=== PATIENT | female | born 1985 | race Caucasian/White ===

== ENCOUNTER 2025-01-24 08:52 | Outpatient (AMB) | payer OTHER, SELFPAY ==
--- NOTE | 2025-01-24 08:53 | MHC.OFFVIS ---
Intake Visit Reasons: 6m Migraine Allergies No Known Allergies Allergy (Verified 01/24/25 08:53) Medication List - Last Reconciled 01/24/25 by Kelly Nixon CNP bupropion HCl XL 300 mg PO DAILY eletriptan 40 mg PO DAILY PRN 30 days nortriptyline 10 - 20 mg PO BEDTIME ondansetron HCl 4 mg PO Q8H PRN valacyclovir 500 mg PO DAILY HPI Comments Details: She was doing okay. Migraines are about the same, usually around period. May get clusters of headaches with period, stress, or lack of sleep. Other triggers include artificial sweeteners in diet sodas and caffeine late in the day. Taking Relpax as needed with good relief, insurance covers #12 for 22 days. Has some work related stress, working at [employer]. Sleep was not so good. She recently restarted nortriptyline, no medication side effects. Hx of migraine with aura, right head tingling. No problems with headaches in first . Has been having headaches since age 4. Duration: a day. Location: above either eye. Quality: Steady to stabbing. Associated features: photophobia, phonophobia, and nausea with bad one. Severity: 8-9/10. Triggers: hormones, stress. MATTHEWS improved by sleep. She has tried ibuprufen, and aleve. Relpax was awesome, it helped right away and MATTHEWS disappeared completely. [facility] Medical History (Updated 01/24/25 @ 08:56 by Kelly Nixon CNP) Insomnia Migraine Review of Systems Const Denies chills, Denies daytime sleepiness, Denies difficulty sleeping, Denies fatigue, Denies fever(s), Denies frequent falls, Reports headache(s), Denies increased appetite, Denies poor appetite, Denies snoring, Denies weakness, Denies weight gain and Denies weight loss Eyes Denies loss of vision ENT Denies vertigo, Denies dizziness, Reports headache(s) and Denies neck pain Card Denies chest pain at rest, Denies chest pain with activity, Denies syncope, Denies leg edema, Denies palpitations, Denies dyspnea and Denies dyspnea on exertion Resp Denies cough, Denies dyspnea, Denies dyspnea on exertion and Denies snoring GI Denies abdominal pain, Denies constipation, Denies heartburn, Denies diarrhea and Denies nausea Denies urinary frequency, Denies urinary incontinence and Denies urinary urgency Musc Denies abnormal gait, Denies back pain, Denies myalgias, Denies arthralgias, Denies neck pain, Reports numbness and Reports tingling Neuro Denies abnormal gait, Denies vertigo, Denies dizziness, Denies syncope, Denies frequent falls, Reports headache(s), Denies lack of coordination, Denies loss of vision, Denies memory loss, Reports numbness, Denies Other visual disturbances, Denies restless legs, Denies seizure-like activity, Reports tingling, Denies paresthesias, Denies tremor(s) and Denies weakness Psych Denies anxiety, Denies depression, Denies auditory hallucinations, Denies memory loss and Denies visual hallucinations Endo Denies fatigue and Denies palpitations Physical Exam Const Other: General Appearance:? normal, in no acute distress. Heart:? S1, S2 normal, no murmurs. Lungs:? clear anteriorly and posteriorly. Musculoskeletal:? normal. Extremities:? no edema. Psych:? alert, oriented, cognitive function intact, cooperative with exam. Neuro Other: Mental Status:?Normal attention, orientation, memory and affect.? Cranial Nerves:?Pupils are equal, round and reactive to light. External occular muscles are intact. Visual massey are full. Face is symmetrical. Facial sensations are normal. Tongue is midline. Palate elevates symmetrically. Shoulder shrugging is normal. Hearing to bedside conversation is normal. Sensory Exam:?....? Coordination:?No ataxia,?no titubation.? Gait Exam: Within normal limits. Cerebellar Signs:?[id number] is okay. Extrapyramidal System:?No tremor, rigidity with normal facial expressions.? Pronator Drift:?Not present.? Involuntary Movements:?No tremors seen.? Speech:?Normal.? Assessment & Plan Assessment & Plan (1) Migraine: Code(s): G43.909 - Migraine, unspecified, not intractable, without status migrainosus Category: Medical Qualifiers: Migraine type: unspecified Status migrainosus presence: without status migrainosus Intractability: not intractable Qualified Code(s): G43.909 - Migraine, unspecified, not intractable, without status migrainosus Plan: Continue nortriptyline 10mg 1-2 capsules at bedtime. Continue eletriptan 40mg 1 tablet as needed for migraines #12 for 22 days. Medications: New nortriptyline 10 - 20 mg (1 - 2 x 10 mg) PO BEDTIME 180 caps 1RF 90 days Changed From eletriptan 40 mg PO DAILY 30 days PRN 10 tabs 5RF migraine To eletriptan 40 mg PO DAILY PRN 12 tabs 5RF migraine 22 days Coding Level of Care Code Est Pt Level 4 (23249) Diagnoses Migraine without status migrainosus, not intractable, unspecified migraine type G43.909 Migraine type: unspecified Status migrainosus presence: without status migrainosus Intractability: not intractable
== END 2025-01-24 09:03 | disposition home or self-care (01) ==
LOC: HO.HSM 08:52
PROVIDERS: Visit Provider Registered Nurse
DX: G43.909 Migraine, unspecified, not intractable, without status migrainosus (principal)
CPT/HCPCS: 99214